=== PATIENT | female | born 1940 | race Asian ===

== ENCOUNTER 2018-04-18 23:29 | Inpatient (IN) | payer BC, MEDICARE ==
[~2018-04-18] VITALS: Ht 154.9 cm; Wt 52.6 kg
--- NOTE | 2018-04-18 23:40 | NUR ---
PT BBRA C/C EPIGASTRIC PAIN / NON RADIATING. PT IS AAOX4. SKIN HOT AND DRY TO TOUCH. PT PLACED ON STATEMENT CLERKS MANAGER AND POX. PT SPO2 88% ON RA. PER MD PT PLACED ON NC 3L/M. NO S/S OF ACUTE DISTRESS NOTED. PT DENIES N/V/D. AWAITING MD FOR EVAL
[2018-04-19] VITALS (8 sets, daily range): BP systolic 90–150; BP diastolic 47–90
[2018-04-19] MEDS ORDERED: ACETAMINOPHEN ES 500 MG TABLET PO ONE
[2018-04-19] MEDS ORDERED: CEFTRIAXONE 1GM BAG (ER ONLY) 50 ML IV ONE
[2018-04-19] MEDS ORDERED: CEFTRIAXONE 1 G VIAL ONE (00:12)
[2018-04-19] MEDS ORDERED: ACETAMINOPHEN ES 500 MG TABLET ONE (00:12)
--- NOTE | 2018-04-19 00:30 | NUR ---
PT ADMITTED FROM ER WITH DX SEPSIS POSSB.UTI. PT A/O X 3, FORGETFUL. VS ARE STABLE, NO FEVER AT THIS TIME. AT BED SIDE. IV 20 G RAC INFILTRATED. NEW IV LINE LEFT FOREARM G22. WILL F/U MADHURI VOGEL ORDERS AND CONTINUE TO MONITOR. Addendum: 04/19/18 at 0670 by TAMMIE BENJAMIN RN PT ON O2 2 L , SUTURATION 93%
[2018-04-19 00:39] LABS: APPEARANCE,URINE CLOUDY (CLEAR); BILIRUBIN,URINE NEGATIVE (NEGATIVE); BLOOD, URINE 1+ Ery/uL (NEGATIVE); COLOR,URINE YELLOW (YELLOW); KETONES,URINE NEGATIVE (NEGATIVE); LEUKOCYTE ESTERASE ,URINE 1+ (NEGATIVE); NITRITE, URINE POSITIVE (NEGATIVE); PROTEIN,URINE 1+ mg/dl (NEGATIVE); UGLUCOSE NEGATIVE (NEGATIVE); UROBILINOGEN,URINE 0.2 EU/dL (0.2)
[2018-04-19 00:39] LABS: BASOPHILS % (AUTO) 0.3 % (0.0-2.0); EOSINOPHILS % (AUTO) 0.1 % (0.0-6.0); HEMATOCRIT 38 % (33-45); HEMOGLOBIN 12.6 g/dL (11.5-14.8); LYMPHOCYTES # (AUTO) 0.3 /CMM (0.8-4.8); LYMPHOCYTES % (AUTO) 2.6 % (20.0-44.0); MEAN CORPUSCULAR HEMOGLOBIN 34 PG (26.0-33.0); MEAN CORPUSCULAR HGB CONC 33 g/dl (31.0-36.0); MEAN CORPUSCULAR VOLUME 100 fL (82-100); MONOCYTES # (AUTO) 0.2 /CMM (0.1-1.30); MONOCYTES % (AUTO) 2.4 % (2.0-12.0); NEUTROPHILS # (AUTO) 9.4 /CMM (1.8-8.9); NEUTROPHILS % (AUTO) 94.6 % (43.0-81.0); PLATELET COUNT (AUTO) 106 /CMM (150-450); RED BLOOD CELL COUNT(AUTO) 3.77 MIL/uL (4.0-5.2); WHITE BLOOD COUNT (AUTO) 9.9 K/uL (4.3-11.0)
[2018-04-19 00:41] LABS: OCCULT BLOOD STOOL NEGATIVE (NEGATIVE)
[2018-04-19] MEDS ORDERED: AZITHROMYCIN 500 MG VIAL ONE (00:48)
[2018-04-19 00:50] LABS: CALCIUM, SERUM 7.5 mg/dL (8.5-10.1); CARBON DIOXIDE 26 mmol/L (21-32); CHLORIDE 102 mmol/L (98-107); CREATININE 0.7 mg/dL (0.6-1.3); GLUCOSE 141 mg/dL (74-106); POTASSIUM 3.9 mmol/L (3.5-5.1); SODIUM SERUM 137 mmol/L (136-145); UREA NITROGEN, BLOOD 19 mg/dL (7-18)
[2018-04-19 00:55] LABS: INR 1.05 (0.87-1.13)
[2018-04-19 00:56] LABS: TROPONIN I < 0.017 ng/mL (0.00-0.056)
[2018-04-19] MEDS ORDERED: AZITHROMYCIN 500 MG in IV D5W 250 ML IV ONE (01:00)
[2018-04-19 01:02] LABS: ALANINE AMINOTRANSFERASE 27 U/L (12-78); ALBUMIN 2.9 g/dL (3.4-5.0); ALKALINE PHOSPHATASE 99 U/L (46-116); ASPARTATE AMINOTRANSFERASE 30 U/L (15-37); B-TYPE NATRIURETIC PEPTIDE 840 PG/ML (0-125); BILIRUBIN,DIRECT 0.5 mg/dL (0.0-0.2); BILIRUBIN,TOTAL 1.2 mg/dL (0.2-1.0); TOTAL PROTEIN, SERUM 6.3 g/dL (6.4-8.2)
[2018-04-19 01:07] LABS: BACTERIA,URINE Many /HPF (None Seen); SQUAMOUS EPITHELIAL CELL,UR Few /HPF (None Seen); WBC,URINE 21-50 /HPF (0-3)
[2018-04-19 01:08] LABS: ABG BASE EXCESS 2.9 mmol/L; ABG OXYGEN SATURATION 92.5 % (92.0-98.5); ABG PCO2 42.1 mmHg (35.0-45.0); ABG PH 7.432 (7.350-7.450); ABG PO2 63.1 mmHg (75.0-100.0); AaDO2 86.9 mmHg; COHb 1.2 % (0.5-1.5); MetHb 0.6 % (0.0-1.5); O2Hb 90.8 % (94.0-97.0); SITE, ABG Right Radial; VENT MODE, BG N/C 2L
--- NOTE | 2018-04-19 01:24 | NUR ---
REPORT GIVEN TO DRAKE CHO FOR CALLI
[2018-04-19] MEDS ORDERED: ACETAMINOPHEN 325 MG TABLET PO PRN (02:00)
[2018-04-19] MEDS ORDERED: MAGNESIUM HYDROXIDE 30 ML UDC PO PRN (02:00)
[2018-04-19] MEDS ORDERED: IV NS 0.9% 1,000 ML IV PRN (02:00)
[2018-04-19] MEDS ORDERED: ZOLPIDEM TARTRATE 5 MG TABLET PO PRN (02:00)
[2018-04-19] MEDS ORDERED: Z GUARD REMEDY 2 OZ OINT TP PRN (02:00)
[2018-04-19] MEDS ORDERED: INSULIN REGULAR, HUMAN 100 UNIT/ML 3 ML VIAL SQ PRN (02:00)
[2018-04-19] MEDS ORDERED: DEXTROSE 50%-WATER 50 ML DISP.SYRIN IV PRN (02:00)
[2018-04-19] MEDS ORDERED: HYDROCODONE/APAP 5/325MG 1 EACH TABLET PO PRN (02:00)
[2018-04-19] MEDS ORDERED: ONDANSETRON HCL/PF 4 MG/2 ML VIAL IVP PRN (02:00)
[2018-04-19] MEDS ORDERED: LEVOFLOXACIN 750 MG /D5W 150ML 750 MG in PREMIX 1 EA IV SCH (05:30)
[2018-04-19] MEDS ORDERED: PIPERACILLIN /TAZOBACTAM 3.375 G VIAL IV ONE (06:07)
[2018-04-19] MEDS: PIPERACILLIN /TAZOBACTAM 3.375 G in IV D5W 50 ML IV SCH ×3 (06:08→17:40)
[2018-04-19] MEDS: BLOOD SUGAR DIAGNOSTIC 1 EACH STRIP IN SCH ×3 (06:47→17:30)
--- NOTE | 2018-04-19 06:49 | NUR ---
REGIONAL MAINTENANCE MANAGER CLOSING NOTES PT IN BED SLEEPING, VS ARE STABLE , PT ON O2 THERAPY 2L SATURATION 95%. PT ON IV FLUID 75 ML/HR. IV LINE L FOREARM 22G INTACT. PT SR HR 70.PT WILL TRANSFER TO [facility] WHERE PRIMARY PHYSICIAN FLOR HI WORK.SHE WILL CONTACT WITH OUR HOSPITALIST. SAFETY PRECAUTIONS IN PLACE , CALL LIGHT WITHIN REACH. WILL ENDORSE TO NEXT SHIFT FOR CALLI.
[2018-04-19 07:30] LABS: EOSINOPHILS % (AUTO) 0.1 % (0.0-6.0); HEMATOCRIT 37 % (33-45); HEMOGLOBIN 12.1 g/dL (11.5-14.8); LYMPHOCYTES # (AUTO) 0.7 /CMM (0.8-4.8); LYMPHOCYTES % (AUTO) 5.8 % (20.0-44.0); MEAN CORPUSCULAR HEMOGLOBIN 33 PG (26.0-33.0); MEAN CORPUSCULAR HGB CONC 33 g/dl (31.0-36.0); MEAN CORPUSCULAR VOLUME 101 fL (82-100); MONOCYTES # (AUTO) 0.5 /CMM (0.1-1.30); NEUTROPHILS # (AUTO) 10.6 /CMM (1.8-8.9); NEUTROPHILS % (AUTO) 90.1 % (43.0-81.0); PLATELET COUNT (AUTO) 117 /CMM (150-450); RDW COEFFICIENT OF VARIATION 15.9 (11.5-15.0); RED BLOOD CELL COUNT(AUTO) 3.63 MIL/uL (4.0-5.2); WHITE BLOOD COUNT (AUTO) 11.8 K/uL (4.3-11.0)
--- NOTE | 2018-04-19 07:33 | NUR ---
HORSE DOCTOR OPENING NOTES RECEIVED PATIENT AWAKE IN BED IN NO ACUTE SIGNS OF DISTRESS. A/O X4. ABLE TO VERBALIZED NEEDS , NO C/O PAIN OR DISCOMFORTS AT THIS TIME. ON SUPPLEMENTAL 02 VIA N/C @ 2LPM, BREATHING EVEN AND UNLABORED. ON TELE-MONITORING WITH CURRENT READING OF SR WITH HR OF 75, NO CARDIAC DISTRESS NOTED. IV ACCESS ON LFA G #22 INTACT AND PATENT, IV FLUID OF NS @ 75 ML/HR INFUSING WELL, NO S/S OF INFILTRATION NOTED. SAFETY PRECAUTIONS IN PLACE. HOB ELEVATED. BED IN LOW/LOCKED POSITION WITH SIDE-RAILS UP X2. CALL LIGHT WITHIN REACH. WILL CONTINUE TO MONITOR PT ACCORDINGLY.
[2018-04-19 07:47] LABS: CHOLESTEROL 105 mg/dL (<200); HDL CHOLESTEROL 47 mg/dL (40-60); LDL 49 mg/dL (0-99); TRIGLYCERIDES 63 mg/dL (30-150)
[2018-04-19 07:49] LABS: CALCIUM, SERUM 7.9 mg/dL (8.5-10.1); CARBON DIOXIDE 27 mmol/L (21-32); CHLORIDE 102 mmol/L (98-107); CREATININE 0.7 mg/dL (0.6-1.3); GLUCOSE 122 mg/dL (74-106); PHOSPHORUS 4.2 mg/dL (2.5-4.9); POTASSIUM 4.2 mmol/L (3.5-5.1); SODIUM SERUM 137 mmol/L (136-145); UREA NITROGEN, BLOOD 17 mg/dL (7-18)
[2018-04-19] MEDS ORDERED: ENOXAPARIN SODIUM 30 MG/0.3 ML DISP.SYRIN SQ SCH (09:00)
--- NOTE | 2018-04-19 09:31 | NUR ---
RN NOTES PATIENT TRANSPORTED DOWN TO RADIOLOGY DEP'T FOR CT OF ABDOMEN PELVIS W/O CONTRAST VIA WHEELCHAIR.
--- NOTE | 2018-04-19 14:12 | NUR ---
RN NOTES PATIENT REMOVED AND REFUSED TO RE-ATTACH TELE-MONITOR, SHE STATED THAT SHE DOESN'T NEED IT. PATIENT IN NO SIGNS OF ACUTE RESPIRATORY OR CARDIAC DISTRESS. WILL CONTINUE TO MONITOR.
--- NOTE | 2018-04-19 17:16 | NUR ---
RN NOTES RECEIVED CALL FROM NURSE ASSOCIATE GENETICS PROFESSOR KIERAN OF [facility] ASKING FOR PT'S CURRENT STATUS. I TOLD HIM THAT PT'S STATUS IS STABLE AT THIS TIME WITH V/S WNL. HE SAID THAT HOSPITAL STAFF WILL CALL FOR ANY UPDATES FOR THE TRANSFER.
--- NOTE | 2018-04-19 17:49 | NUR ---
RN NOTES [facility] SPOKE TO BRAN MIXER KIERSTEN AND SAID THAT NURSES ARE VERY BUSY AT THE MOMENT AND WILL CALL OUR UNIT LATER. WILL F/U.
--- NOTE | 2018-04-19 18:12 | NUR ---
RN NOTES RN ANA OF [facility] CALLED. DETAILED REPORT GIVEN AND PT WILL GO TO [address] [place] [address] ROOM 52. TRANSPORTATION VIA AMBULANCE WILL BE ARRANGED. WILL ENDORSE TO [facility].
--- NOTE | 2018-04-19 18:24 | NUR ---
ADOBE LAYER HELPER CLOSING NOTES PATIENT AWAKE AND RESTING IN BED. A/O X4. ABLE TO MAKE NEEDS KNOWN. AMBULATORY WITH STEADY GAIT. AFEBRILE THROUGHOUT THE DAY. ON ROOM AIR AT THIS TIME, TOLERATING WELL WITH NO SOB NOTED. PT REFUSED TELE-MONITORING, NO CARDIAC DISTRESS VOICED. IV ACCESS ON LFA G #22 INTACT AND PATENT, IV FLUID OF NS @ 75 ML/HR INFUSING WELL, NO S/S OF INFILTRATION NOTED. ALL SAFETY PRECAUTIONS IN PLACE. HOB ELEVATED. BED IN LOW/LOCKED POSITION WITH SIDE-RAILS UP X2. CALL LIGHT WITHIN REACH. ALL NEEDS AND CARE ATTENDED WELL. PT FOR TRANSFER TO [facility], REPORT GIVEN TO ALLEY PEREZ AND PT WILL GO TO 5N ROOM 5242. WILL ENDORSE TO SEED SALES MANAGER NURSE.
--- NOTE | 2018-04-19 19:51 | NUR ---
tele/rn opening notes RECEIVED PATIENT SITTING IN BED, REPORT RECEIVED FROM JEF GOLD DC TO [facility] / [facility]. PATIENT ALERT, ORIENTED X4, ABLE TO VERBALIZE NEEDS, DISCHARGE INSTRUCTIONS PROVIDED, BELONGINGS RECEIVE BY PATIENT AND SIGNED, INFORM TRANSFER AND TRANSPORT RECIPROCATING DRILL OPERATOR AROUND 1999. LEFT FOREARM IV PATENT, W/ NO S/S OF REDNESS, WILL FOLLOW UP AND PROVIDE CARE, KEEP PATIENT SAFE AND COMFORTABLE.
--- NOTE | 2018-04-19 20:45 | NUR ---
TELE/RN NOTES PATIENT WAS TRANSFERED TO [facility], ON A GURNEY WITH 2 EMT, ALERT, ORIENTED X3, REPORT GIVEN TO [facility] NURSE AND UX VISUAL DESIGNER FOR TRANSFER OF CARE, ID BAND REMOVED,
[2018-04-20] MEDS ORDERED: CEFTRIAXONE 1 G in IV D5W 50 ML IV SCH ×2
[2018-04-20] MEDS ORDERED: AZITHROMYCIN 500 MG in IV D5W 250 ML IV SCH (01:00)
== END 2018-04-19 20:45 | disposition short-term general hospital (02) | DRG 871 ==
LOC: ER 23:31 → TELE 04-19 01:06
PROVIDERS: ADMIT Nurse Practitioner Acute Care; ATTEND Nurse Practitioner Acute Care
DX: A41.9 Sepsis, unspecified organism (principal); J15.6 Pneumonia due to other Gram-negative bacteria; G92 Toxic encephalopathy; J96.01 Acute respiratory failure with hypoxia; E44.0 Moderate protein-calorie malnutrition; D61.818 Other pancytopenia; K86.1 Other chronic pancreatitis; N39.0 Urinary tract infection, site not specified; M35.2 Behcet's disease; K44.0 Diaphragmatic hernia with obstruction, without gangrene; I10 Essential (primary) hypertension; Z88.8 Allergy status to other drugs, medicaments and biological substances; Z91.041 Radiographic dye allergy status; E86.0 Dehydration; R19.7 Diarrhea, unspecified; K58.9 Irritable bowel syndrome, unspecified; E78.5 Hyperlipidemia, unspecified; E11.9 Type 2 diabetes mellitus without complications; Z86.73 Personal history of transient ischemic attack (TIA), and cerebral infarction without residual deficits
CPT/HCPCS: 36415; 36600; 71045-TC; 80048-TC; 80061-TC; 80076-TC; 81000-TC; 82272-TC; 82803-TC; 83605-TC; 83735-TC; 83880; 84100-TC; 84484-TC; 85025-TC; 85730-TC; 87040-TC; 87081-TC; 87086-TC; 87186-TC; 87400; A4216; A4606; J0456; J0696; J1650; J1815; J1956; J2543; J7030; J7060; Z7610